=== PATIENT | female | born 1955 | race Caucasian/White ===

== ENCOUNTER 2017-09-27 07:52 | Day surgery (SDC) | payer MEDICAID ==
[~2017-09-27] VITALS: Ht 165.1 cm; Wt 84.3 kg
[~2017-09-27 07:52] MED LIST: BUSP5TAB3 PO; DEXL60CA3 PO; FLUO20CA39 PO; GABA800T PO; GLIP10TA11 PO
[2017-09-27] MEDS ORDERED: normal saline 1000ml 1,000 ML IV PRN (08:15)
[2017-09-27 08:24] VITALS: BP 122/98
[2017-09-27] MEDS ORDERED: PANT40TA4 PO (08:33)
[2017-09-27] MEDS ORDERED: AMLO10TA13 PO (08:34)
[2017-09-27 09:13] LABS: BASOPHILS % (AUTO) 0.4 % (0-1); EOSINOPHILS # (AUTO) 0.4 X10'3 (0-0.9); EOSINOPHILS % (AUTO) 4.3 % (0-6); HEMATOCRIT 33.3 % (35.0-45.0); HEMOGLOBIN 11.4 g/dl (12.0-16.0); LYMPHOCYTES # (AUTO) 1.8 X10'3 (1.1-4.8); LYMPHOCYTES % (AUTO) 17.6 % (21-51); MEAN CORPUSCULAR HEMOGLOBIN 29.9 PG (27.0-31.0); MEAN CORPUSCULAR HGB CONC 34.3 % (33.0-36.5); MEAN PLATELET VOLUME 7.5 FL (7.4-10.4); MONOCYTES # (AUTO) 0.5 X10'3 (0-0.9); MONOCYTES % (AUTO) 4.8 % (2-12); NEUTROPHILS # (AUTO) 7.3 X10'3 (1.8-7.7); NEUTROPHILS % (AUTO) 72.9 % (42-75); PLATELET COUNT 298 X10'3 (140-440); RED BLOOD COUNT 3.82 X10'6 (4.20-5.60); RED CELL DISTRIBUTION WIDTH 14.1 % (11.5-14.5); WHITE BLOOD COUNT 10.1 X10'3 (4.5-11.0)
[2017-09-27] MEDS ORDERED: heparin 1,000 units/ml 10ml inj ICATH ONE (09:35)
[2017-09-27] MEDS ORDERED: LIDOcaine 1% (10mg/ml) 2ml vial SQ ONE (09:35)
[2017-09-27] MEDS ORDERED: fentaNYL/PF 50MCG/1 ML 2ML syringe IV PRN (09:35)
[2017-09-27] MEDS ORDERED: midazolam 2 mg/2 ml injection IV PRN (09:35)
[2017-09-27] MEDS ORDERED: fentaNYL/PF 50MCG/1 ML 2ML syringe ONE (10:32)
[2017-09-27] MEDS ORDERED: heparin 1,000unit/ml 10ml vial 10 ML ONE (10:32)
[2017-09-27] MEDS ORDERED: midazolam 2 mg/2 ml injection ONE (10:32)
[2017-09-27 11:20] VITALS: BP 126/84
[2017-09-27 11:30] VITALS: BP 124/80
[2017-09-27 11:45] VITALS: BP 125/79
[2017-09-27 12:00] VITALS: BP 121/83
[2017-09-27 12:15] VITALS: BP 129/91
== END 2017-09-27 13:00 | disposition home or self-care (01) ==
LOC: SSTAY O 07:52
PROVIDERS: ATTEND Radiology Diagnostic Radiology
DX: I12.0 Hypertensive chronic kidney disease with stage 5 chronic kidney disease or end stage renal disease (principal); N18.5 Chronic kidney disease, stage 5; N17.9 Acute kidney failure, unspecified; E11.22 Type 2 diabetes mellitus with diabetic chronic kidney disease; D63.1 Anemia in chronic kidney disease; F31.9 Bipolar disorder, unspecified; N25.81 Secondary hyperparathyroidism of renal origin; E66.9 Obesity, unspecified; Z68.31 Body mass index [BMI] 31.0-31.9, adult; Z79.899 Other long term (current) drug therapy; Z88.5 Allergy status to narcotic agent
CPT/HCPCS: 36415; 36558; 76937; 77001; 82948; 85025; A9270; C1750; C1894; J1644; J2250; J3010; J7030; 99152; 99153; A4620

== ENCOUNTER 2018-05-30 05:13 | Day surgery (SDC) | payer MEDICAID ==
[~2018-05-30] VITALS: Ht 165.1 cm; Wt 85.2 kg
[~2018-05-30 05:13] MED LIST changes: +AMLO10TA13 PO; -DEXL60CA3 PO; -GLIP10TA11 PO; +PANT40TA4 PO
[2018-05-30 06:20] VITALS: BP 131/76
[2018-05-30] MEDS ORDERED: normal saline 1000ml 1,000 ML IV PRN (06:30)
[2018-05-30] MEDS ORDERED: FURO-150 PO (07:17)
[2018-05-30] MEDS ORDERED: fentaNYL/PF 50MCG/1 ML 2ML syringe ONE (08:16)
[2018-05-30] MEDS ORDERED: LIDOcaine 1%/PF 5ML 10 MG/ML VIAL ONE (08:16)
[2018-05-30] MEDS ORDERED: heparin 1,000 UNITS/NS 500ml 500 ML ONE (08:16)
[2018-05-30] MEDS ORDERED: midazolam 2 mg/2 ml injection ONE (08:16)
[2018-05-30] MEDS ORDERED: iohexol 300mg/ml 100ml inj. ONE (08:16)
[2018-05-30] MEDS ORDERED: normal saline 1000ml 1,000 ML IV SCH (08:24)
[2018-05-30 08:25] LABS: ALBUMIN 3.4 G/DL (3.4-5.0); ANION GAP 17 (8-16); BLOOD UREA NITROGEN 66 MG/DL (7-18); BUN/CREATININE RATIO 9.1 (6.6-38.0); CALCIUM 7.9 MG/DL (8.5-10.1); CHLORIDE 103 MMOL/L (99-107); CREATININE 7.22 MG/DL (0.40-0.90); GLUCOSE 274 MG/DL (70-104); SODIUM 140 MMOL/L (135-145); TOTAL CARBON DIOXIDE 20.3 MMOL/L (24-32); eGFR 6 ML/MIN
[2018-05-30] MEDS ORDERED: LIDOcaine 1%/PF 5ML 10 MG/ML VIAL SQ ONE (08:25)
[2018-05-30] MEDS ORDERED: midazolam 2 mg/2 ml injection IV PRN (08:25)
[2018-05-30] MEDS ORDERED: fentaNYL/PF 50MCG/1 ML 2ML syringe IV PRN (08:25)
[2018-05-30] MEDS ORDERED: heparin 1,000 UNITS/NS 500ml 500 ML ICATH ONE (08:25)
[2018-05-30 08:35] LABS: BASOPHILS % (AUTO) 0.4 % (0-1); EOSINOPHILS # (AUTO) 0.3 X10'3 (0-0.9); EOSINOPHILS % (AUTO) 4.3 % (0-6); HEMATOCRIT 31.5 % (35.0-45.0); LYMPHOCYTES # (AUTO) 1.3 X10'3 (1.1-4.8); LYMPHOCYTES % (AUTO) 17.7 % (21-51); MEAN CORPUSCULAR HEMOGLOBIN 32.7 PG (27.0-31.0); MEAN CORPUSCULAR VOLUME 93.6 FL (78-98); MONOCYTES # (AUTO) 0.5 X10'3 (0-0.9); MONOCYTES % (AUTO) 6.9 % (2-12); NEUTROPHILS % (AUTO) 70.7 % (42-75); PLATELET COUNT 220 X10'3 (140-440); RED BLOOD COUNT 3.36 X10'6 (4.20-5.60); RED CELL DISTRIBUTION WIDTH 14.2 % (11.5-14.5); WHITE BLOOD COUNT 7.1 X10'3 (4.5-11.0)
[2018-05-30] MEDS ORDERED: tPA-cathflo 2 MG/2 ml IV flush ONE (08:39)
[2018-05-30] MEDS ORDERED: heparin 1,000unit/ml 10ml vial 10 ML ONE (08:40)
[2018-05-30 10:00] VITALS: BP 142/85
[2018-05-30 10:15] VITALS: BP 154/73
[2018-05-30 10:30] VITALS: BP 147/81
[2018-05-30 10:45] VITALS: BP 148/68
[2018-05-30 11:00] VITALS: BP 148/80
== END 2018-05-30 11:15 | disposition home or self-care (01) ==
LOC: SSTAY O 05:13
PROVIDERS: ATTEND Radiology Diagnostic Radiology
DX: T82.868A Thrombosis due to vascular prosthetic devices, implants and grafts, initial encounter (principal); Y83.2 Surgical operation with anastomosis, bypass or graft as the cause of abnormal reaction of the patient, or of later complication, without mention of misadventure at the time of the procedure; Y92.89 Other specified places as the place of occurrence of the external cause; I12.0 Hypertensive chronic kidney disease with stage 5 chronic kidney disease or end stage renal disease; E11.22 Type 2 diabetes mellitus with diabetic chronic kidney disease; N18.5 Chronic kidney disease, stage 5; E11.42 Type 2 diabetes mellitus with diabetic polyneuropathy; K21.9 Gastro-esophageal reflux disease without esophagitis; H91.8X3 Other specified hearing loss, bilateral; Z87.39 Personal history of other diseases of the musculoskeletal system and connective tissue; Z99.2 Dependence on renal dialysis; Z79.891 Long term (current) use of opiate analgesic; Z98.890 Other specified postprocedural states; Z79.899 Other long term (current) drug therapy; Z83.6 Family history of other diseases of the respiratory system; Z84.1 Family history of disorders of kidney and ureter
CPT/HCPCS: 36415; 36905; 76937; 80048; 85025; 99152; 99153; J1644; J2001; J2250; J2997; J3010; J7030; Q9967; C1725; C1757; C1769; C1894

== ENCOUNTER 2018-07-03 08:13 | Day surgery (SDC) | payer MEDICAID ==
[~2018-07-03] VITALS: Ht 165.1 cm; Wt 83.0 kg
[~2018-07-03 08:13] MED LIST changes: +FURO-150 PO
[2018-07-03] MEDS ORDERED: heparin sodium, porcine/PF 100unit/ml 5ML syringe IV PRN (08:40)
[2018-07-03] MEDS ORDERED: CARV3.122 PO (08:41)
[2018-07-03] MEDS ORDERED: INSU100I31 SQ (08:44)
[2018-07-03 09:10] VITALS: BP 132/70
[2018-07-03 09:47] LABS: BASOPHILS # (AUTO) 0.1 X10'3 (0-0.2); BASOPHILS % (AUTO) 0.6 % (0-1); EOSINOPHILS # (AUTO) 0.3 X10'3 (0-0.9); EOSINOPHILS % (AUTO) 3.3 % (0-6); HEMATOCRIT 27.8 % (35.0-45.0); HEMOGLOBIN 9.6 g/dl (12.0-16.0); LYMPHOCYTES # (AUTO) 1.6 X10'3 (1.1-4.8); MEAN CORPUSCULAR HGB CONC 34.6 g/dL (33.0-36.5); MEAN CORPUSCULAR VOLUME 95.3 FL (78-98); MEAN PLATELET VOLUME 8.1 FL (7.4-10.4); MONOCYTES # (AUTO) 0.6 X10'3 (0-0.9); MONOCYTES % (AUTO) 7.1 % (2-12); NEUTROPHILS # (AUTO) 5.9 X10'3 (1.8-7.7); PLATELET COUNT 232 X10'3 (140-440); RED BLOOD COUNT 2.92 X10'6 (4.20-5.60); RED CELL DISTRIBUTION WIDTH 14.9 % (11.5-14.5); WHITE BLOOD COUNT 8.4 X10'3 (4.5-11.0)
[2018-07-03 10:19] LABS: ALANINE AMINOTRANSFERASE 20 U/L (12-78); ALBUMIN 3.1 G/DL (3.4-5.0); ALBUMIN/GLOBULIN RATIO 0.8 (1.1-1.5); ALKALINE PHOSPHATASE 195 IU/L (46-116); ANION GAP 16 (8-16); ASPARTATE AMINO TRANSFERASE 13 U/L (10-37); BILIRUBIN,TOTAL 0.3 MG/DL (0.1-1.0); BLOOD UREA NITROGEN 68 MG/DL (7-18); CALCIUM 8.1 MG/DL (8.5-10.1); CHLORIDE 101 MMOL/L (99-107); CREATININE 8.48 MG/DL (0.40-0.90); GLUCOSE 188 MG/DL (70-104); POTASSIUM 4.5 MMOL/L (3.5-5.1); SODIUM 139 MMOL/L (135-145); TOTAL CARBON DIOXIDE 21.7 MMOL/L (24-32); TOTAL PROTEIN 6.9 G/DL (6.4-8.2); eGFR 5 ML/MIN
[2018-07-03] MEDS ORDERED: normal saline 1000ml 1,000 ML IV SCH (10:57)
[2018-07-03] MEDS ORDERED: heparin 1,000 units/ml 10ml inj ICATH ONE (11:00)
[2018-07-03] MEDS ORDERED: LIDOcaine 1%/PF 5ML 10 MG/ML VIAL SQ ONE (11:00)
[2018-07-03] MEDS ORDERED: fentaNYL/PF 50MCG/1 ML 2ML syringe IV PRN (11:00)
[2018-07-03] MEDS ORDERED: midazolam 2 mg/2 ml injection IV PRN (11:00)
[2018-07-03] MEDS ORDERED: midazolam 2 mg/2 ml injection ONE (11:03)
[2018-07-03] MEDS ORDERED: heparin 1,000unit/ml 10ml vial 10 ML ONE (11:03)
[2018-07-03] MEDS ORDERED: LIDOcaine 1%/PF 5ML 10 MG/ML VIAL ONE (11:03)
[2018-07-03] MEDS ORDERED: fentaNYL/PF 50MCG/1 ML 2ML syringe ONE (11:04)
[2018-07-03 12:07] VITALS: BP 132/75
[2018-07-03 12:15] VITALS: BP 131/59
[2018-07-03 12:30] VITALS: BP 113/67
[2018-07-03 12:45] VITALS: BP 119/61
[2018-07-03 13:15] VITALS: BP 118/72
== END 2018-07-03 13:40 | disposition home or self-care (01) ==
LOC: SSTAY O 08:13
PROVIDERS: ATTEND Radiology Vascular & Interventional Radiology
DX: T82.868A Thrombosis due to vascular prosthetic devices, implants and grafts, initial encounter (principal); I10 Essential (primary) hypertension; E11.9 Type 2 diabetes mellitus without complications; Z79.4 Long term (current) use of insulin; Y83.8 Other surgical procedures as the cause of abnormal reaction of the patient, or of later complication, without mention of misadventure at the time of the procedure; Y92.9 Unspecified place or not applicable
CPT/HCPCS: 36415; 36558; 76937; 77001; 80053; 85025; 99152; 99153; C1750; C1769; C1894; J1644; J2001; J2250; J3010; J7030

== ENCOUNTER 2022-08-09 10:44 | Day surgery (SDC) | payer MEDICARE, MEDICAID ==
[~2022-08-09] VITALS: Ht 165.1 cm; Wt 74.1 kg
[~2022-08-09 10:44] MED LIST changes: +CARV3.122 PO; +INSU100I31 SQ; -PANT40TA4 PO; +PANT40TA54 PO
[2022-08-09 11:00] VITALS: BP 139/70
[2022-08-09] MEDS ORDERED: normal saline 1000ml 1,000 ML IV PRN (11:05)
[2022-08-09] MEDS ORDERED: PHO667C PO (11:21)
[2022-08-09] MEDS ORDERED: FLUO-1 PO (11:25)
[2022-08-09] MEDS ORDERED: midazolam 1 mg/ML 2ml injection ONE (11:35)
[2022-08-09] MEDS ORDERED: heparin 1,000unit/ml 10ml vial 10 ML ONE (11:35)
[2022-08-09] MEDS ORDERED: fentaNYL/PF 50MCG/1 ML 2ML syringe ONE (11:35)
[2022-08-09] MEDS ORDERED: LIDOcaine 1% 30ml preserv. free vial ONE (11:35)
[2022-08-09 11:38] LABS: BASOPHILS # (AUTO) 0.1 X10'3 (0-0.2); BASOPHILS % (AUTO) 1.2 % (0-1); EOSINOPHILS # (AUTO) 0.3 X10'3 (0-0.9); HEMATOCRIT 35.6 % (35.0-45.0); HEMOGLOBIN 12.2 g/dl (12.0-16.0); LYMPHOCYTES # (AUTO) 1.5 X10'3 (1.1-4.8); LYMPHOCYTES % (AUTO) 20.9 % (21-51); MEAN CORPUSCULAR HEMOGLOBIN 33.1 PG (27.0-31.0); MEAN CORPUSCULAR HGB CONC 34.4 g/dL (33.0-36.5); MEAN CORPUSCULAR VOLUME 96.3 FL (78-98); MEAN PLATELET VOLUME 7.1 FL (7.4-10.4); MONOCYTES # (AUTO) 0.6 X10'3 (0-0.9); MONOCYTES % (AUTO) 8.3 % (2-12); NEUTROPHILS # (AUTO) 4.6 X10'3 (1.8-7.7); NEUTROPHILS % (AUTO) 65.6 % (42-75); PLATELET COUNT 242 X10'3 (140-440); RED BLOOD COUNT 3.69 X10'6 (4.20-5.60); RED CELL DISTRIBUTION WIDTH 15.9 % (11.5-14.5)
[2022-08-09 11:48] LABS: APTT 24 SECONDS (22-32)
[2022-08-09 12:50] VITALS: BP 145/75
[2022-08-09 13:05] VITALS: BP 147/62
[2022-08-09 13:20] VITALS: BP 150/72
[2022-08-09 13:35] VITALS: BP 134/72
[2022-08-09 14:05] VITALS: BP 144/77
== END 2022-08-09 14:05 | disposition home or self-care (01) ==
LOC: SSTAY O 10:44
PROVIDERS: ATTEND Radiology Diagnostic Radiology
DX: E11.22 Type 2 diabetes mellitus with diabetic chronic kidney disease (principal); I12.9 Hypertensive chronic kidney disease with stage 1 through stage 4 chronic kidney disease, or unspecified chronic kidney disease; F32.A Depression, unspecified; Z79.4 Long term (current) use of insulin; Z82.49 Family history of ischemic heart disease and other diseases of the circulatory system; Z98.890 Other specified postprocedural states
CPT/HCPCS: 36415; 36558; 76937; 77001; 82948; 85025; 85610; 85730; 99152; 99153; A6258; C1750; C1769; J1644; J2250; J3010; J3490; J7030; 71045; 80053; 83605; 84145; 87040; 93971; 96365; 96366; 96367; 99285; A4620; A6212; A6449; A9270; C1894; J0696; J3370

== ENCOUNTER 2022-08-09 18:12 | Emergency (ER) | payer MEDICARE, MEDICAID ==
[~2022-08-09] VITALS: Ht 165.1 cm; Wt 70.6 kg
[~2022-08-09 18:12] MED LIST changes: +FLUO-1 PO; +PHO667C PO
[2022-08-09 18:54] LABS: BASOPHILS % (AUTO) 0.4 % (0-1); EOSINOPHILS # (AUTO) 0.3 X10'3 (0-0.9); EOSINOPHILS % (AUTO) 2.5 % (0-6); HEMATOCRIT 32.7 % (35.0-45.0); HEMOGLOBIN 11.2 g/dl (12.0-16.0); LYMPHOCYTES # (AUTO) 1.3 X10'3 (1.1-4.8); LYMPHOCYTES % (AUTO) 12.4 % (21-51); MEAN CORPUSCULAR HEMOGLOBIN 33.2 PG (27.0-31.0); MEAN CORPUSCULAR HGB CONC 34.4 g/dL (33.0-36.5); MEAN CORPUSCULAR VOLUME 96.6 FL (78-98); MEAN PLATELET VOLUME 7.1 FL (7.4-10.4); MONOCYTES # (AUTO) 0.8 X10'3 (0-0.9); MONOCYTES % (AUTO) 7.8 % (2-12); NEUTROPHILS # (AUTO) 8.2 X10'3 (1.8-7.7); NEUTROPHILS % (AUTO) 76.9 % (42-75); PLATELET COUNT 242 X10'3 (140-440); RED BLOOD COUNT 3.38 X10'6 (4.20-5.60); RED CELL DISTRIBUTION WIDTH 16.1 % (11.5-14.5); WHITE BLOOD COUNT 10.6 X10'3 (4.5-11.0)
[2022-08-09 19:09] LABS: ALANINE AMINOTRANSFERASE 18 U/L (12-78); ALBUMIN 3.3 G/DL (3.4-5.0); ALBUMIN/GLOBULIN RATIO 0.8 (1.1-1.5); ALKALINE PHOSPHATASE 157 IU/L (46-116); ANION GAP 11 (8-16); ASPARTATE AMINO TRANSFERASE 16 U/L (10-37); BILIRUBIN,TOTAL 0.6 MG/DL (0.1-1.0); BLOOD UREA NITROGEN 37 MG/DL (7-18); BUN/CREATININE RATIO 4.7 (10.0-20.0); CHLORIDE 96 MMOL/L (99-107); CREATININE 7.82 MG/DL (0.40-0.90); GLUCOSE 225 MG/DL (70-104); POTASSIUM 4.7 MMOL/L (3.5-5.1); SODIUM 138 MMOL/L (135-145); TOTAL PROTEIN 7.5 G/DL (6.4-8.2); eGFR 5 ML/MIN
--- NOTE | 2022-08-09 19:22 | NUR ---
CHARGE NURSE RN NOTIFIED OF GENERAL ASSESSMENT NEEDED.
[2022-08-09 20:01] VITALS: BP 125/77
[2022-08-09] MEDS ORDERED: CefTRIAXone 2gm/D5W 50ml BAG 50 ML IV ONE (20:15)
[2022-08-09] MEDS ORDERED: vancomycin/NS 1 GM ADD-VANTAGE 250 ML IV ONE (20:15)
[2022-08-09] MEDS ORDERED: normal saline 1000ML IV soln IVB ONE (20:15)
== END 2022-08-09 23:03 | disposition home or self-care (01) ==
LOC: ER 18:13
DX: N18.6 End stage renal disease (principal); Z88.5 Allergy status to narcotic agent; Z79.899 Other long term (current) drug therapy; Z79.1 Long term (current) use of non-steroidal anti-inflammatories (NSAID); Z79.2 Long term (current) use of antibiotics
CPT/HCPCS: 36415; 71045; 80053; 83605; 84145; 85025; 87040; 93971; 96365; 96366; 96367; 99285; J0696; J3370; J7030; A6212; A6258; A6449; L4360

== ENCOUNTER 2022-08-30 10:35 | Day surgery (SDC) | payer MEDICARE, MEDICAID ==
[~2022-08-30] VITALS: Ht 160 cm; Wt 162.0 kg
[~2022-08-30 10:35] MED LIST changes: -CARV3.122 PO; -FLUO20CA39 PO; -FURO-150 PO
[2022-08-30] MEDS ORDERED: normal saline 1000ml 1,000 ML IV PRN (10:55)
[2022-08-30 11:00] VITALS: BP 156/78
--- NOTE | 2022-08-30 15:15 | NUR ---
Dr. Tavera in to see pt. MD aware of left hand edema, discolor, purple.
[2022-08-30] MEDS ORDERED: heparin 1,000unit/ml 10ml vial 10 ML ONE (15:16)
[2022-08-30] MEDS ORDERED: iohexol 300mg/ml 100ml inj. ONE (15:29)
[2022-08-30 16:15] VITALS: BP 154/76
[2022-08-30 16:30] VITALS: BP 149/63
== END 2022-08-30 16:37 | disposition home or self-care (01) ==
LOC: SSTAY O 10:35
PROVIDERS: ATTEND Radiology Vascular & Interventional Radiology
DX: T82.49XA Other complication of vascular dialysis catheter, initial encounter (principal); N18.6 End stage renal disease; I87.1 Compression of vein; Z88.5 Allergy status to narcotic agent; Z79.899 Other long term (current) drug therapy; Z82.5 Family history of asthma and other chronic lower respiratory diseases; Z84.1 Family history of disorders of kidney and ureter; Y83.8 Other surgical procedures as the cause of abnormal reaction of the patient, or of later complication, without mention of misadventure at the time of the procedure; Y92.89 Other specified places as the place of occurrence of the external cause
CPT/HCPCS: 36005; 36581; 37248; 75820; 77001; 82948; C1725; C1750; C1769; C1894; J1644; J7030; Q9967; A4620; A9270